=== PATIENT | female | born 1955 | race Caucasian/White ===

== ENCOUNTER 2016-06-04 05:36 | Day surgery (SDC) | payer BC ==
--- NOTE | ~2016-06-04 | EGD ---
EGD REPORT [facility] [address] [address] NAME: BHARATI TOMLINSON : 51 STATUS : [place] [facility] [place] [facility] [place] PAT#: [id number] AGE: 61 ADM/REG DATE : 06/04/16 MR#: [id number] REPORT SERV DATE: 06/04/16 DICTATED BY: FAUSTINO GAMEZ DATE: 06/04/16 REPORT STATUS : Draft TRANSCRIBED BY: [employer] DATE: 06/04/16 [facility] Center Patient Name: Bharati Tomlinson Date of : 1955 Attending MD: FAUSTINO GAMEZ MD Procedure Date No Time: 06/04/2016 Procedure: Upper GI endoscopy Indications: Epigastric abdominal pain, Dysphagia, Heartburn, Suspected esophageal reflux Referring MD: NAT MILLER MD, NAT HITCHCOCK Medicines: as per anesthesia Complications: No immediate complications. Procedure: Pre-Anesthesia Assessment: - ASA Grade Assessment: II - A patient with mild systemic disease. After obtaining informed consent, the endoscope was passed under direct vision. Throughout the procedure, the patient's blood pressure, pulse, and oxygen saturations were monitored continuously. The GIF [id number] was introduced through the mouth, and advanced to the third part of duodenum. The upper GI endoscopy was accomplished without difficulty. The patient tolerated the procedure. Findings: The examined esophagus was normal. The scope was withdrawn. Dilation was performed with a Zhou dilator with no resistance at 44 Fr. A medium amount of food (residue) was found in the gastric body. The cardia and gastric fundus were normal on retroflexion. The examined duodenum was normal. Impression: - Normal esophagus. Dilated. - A medium amount of food (residue) in the stomach. - Normal examined duodenum. Recommendation: - Low-fiber diet. - Follow an antireflux regimen. - Continue present medications. Procedure Code(s): --- Professional --- 32879, Esophagogastroduodenoscopy, flexible, transoral; diagnostic, including collection of specimen(s) by brushing or washing, when performed (separate procedure) 61760, Dilation of esophagus, by unguided sound or bougie, single or multiple passes EGD REPORT [facility] [address] [place] [address] NAME: BHARATI TOMLINSON : [birth year] STATUS : [place] [facility] [place] [facility] [place] PAT#: [id number] AGE: 61 ADM/REG DATE : 06/04/16 MR#: [id number] REPORT SERV DATE: 06/04/16 DICTATED BY: FAUSTINO GAMEZ. DATE: 06/04/16 REPORT STATUS : Draft TRANSCRIBED BY: [employer] DATE: 06/04/16 Diagnosis Code(s): --- Professional --- R10.13, Epigastric pain R13.10, Dysphagia, unspecified R12, Heartburn CPT copyright 2013 [employer]. All rights reserved. The codes documented in this report are preliminary and upon traffic or system dispatcher review may be revised to meet current compliance requirements. FAUSTINO GAMEZ MD 06/04/2016 8:03 AM This report has been signed electronically. Number of Addenda: 0 Note Initiated On: 06/04/2016 7:42 AM Scope Withdrawal Time 0 hours 0 minutes 0 seconds [address] [place] [id number]
[~2016-06-04 05:36] MED LIST: COREG6 PO; CYANO1000T PO; CYMBALTA60 PO; DELTADOSE PO; FINACEA TOP; FLECTOR1.3 % TOP; FLEX PO; FORTAMET500 MG PO; GLUCPH PO; INVOKANA100 MG PO; KAPIDEX30 MG PO; LYRICA150 MG PO; LYRICA50 PO; MAG OXIDE250 MG PO; MOBIC7.5 PO; PLAQ200B PO; PREM625 PO; PREV30 PO; PRILO PO; PRINZIDE PO; STARLIX120 PO; VICTOZA; VITD PO; ZANAFLEX 4 MG TA4 MG PO; ZETIA PO
== END 2016-06-04 23:59 | disposition home or self-care (01) ==
LOC: DMU 05:36
PROVIDERS: Internal Medicine Gastroenterology
PROC: 0D758ZZ Dilation of Esophagus, Via Natural or Artificial Opening Endoscopic (ICD-10-PCS; principal; 2016-06-04 07:30)
DX: R13.10 Dysphagia, unspecified (principal); I10 Essential (primary) hypertension; E11.9 Type 2 diabetes mellitus without complications; E66.9 Obesity, unspecified; E78.00 Pure hypercholesterolemia, unspecified; L71.9 Rosacea, unspecified; K21.9 Gastro-esophageal reflux disease without esophagitis; M19.90 Unspecified osteoarthritis, unspecified site; G47.30 Sleep apnea, unspecified; M35.00 Sjogren syndrome, unspecified; Z88.0 Allergy status to penicillin; Z88.2 Allergy status to sulfonamides; Z88.8 Allergy status to other drugs, medicaments and biological substances; Z79.84 Long term (current) use of oral hypoglycemic drugs; Z79.52 Long term (current) use of systemic steroids; Z79.899 Other long term (current) drug therapy; Z98.1 Arthrodesis status; Z90.49 Acquired absence of other specified parts of digestive tract; Z90.710 Acquired absence of both cervix and uterus; Z90.722 Acquired absence of ovaries, bilateral; Z98.890 Other specified postprocedural states
CPT/HCPCS: 82962